=== PATIENT | male | born 1945 | race Hispanic/Latino ===

== ENCOUNTER 2017-02-15 00:35 | Emergency (ER) | payer MEDICARE ==
[2017-02-15 01:37] LABS: Bilirubin,Urine NEG (Negative); Blood,Urine MOD (Negative); Ketones,Urine TR mg/dL (Negative); Leukocyte Esterase,Urine NEG (Negative); Nitrite,Urine NEG (Negative); Urobilinogen,Urine < 2.0 mg/dL (<2.0)
[2017-02-15 01:40] LABS: Eosinophils % (Auto) 8.7 % (0.0-4.3); Hematocrit 39.5 % (35.5-45.6); Hemoglobin 13.2 gm/dl (11.8-15.2); Mean Corpuscular HGB Conc 34 % (32-34); Mean Corpuscular Hemoglobin 30 pg (28-32); Mean Corpuscular Volume 91 fl (84-94); Platelet Count 244 K/mm3 (140-440); Red Blood Count 4.35 M/mm3 (3.65-5.03); Red Cell Distribution Width 14.5 % (13.2-15.2); White Blood Count 9.7 K/mm3 (4.5-11.0)
[2017-02-15 01:44] LABS: Mucus,Urine FEW /HPF
[2017-02-15 01:46] LABS: RBC,Urine > 182.0 /HPF (0.0-6.0)
[2017-02-15 01:50] LABS: INR 2.74 (0.87-1.13)
[2017-02-15 01:51] LABS: Partial Thromboplastin Time 42.2 Sec. (24.2-36.6)
[2017-02-15 02:02] LABS: Alanine Aminotransferase 25 units/L (7-56); Albumin 4.1 g/dL (3.9-5); Albumin/Globulin Ratio 1.2 %; Alkaline Phosphatase 50 units/L (35-129); BUN/Creatinine Ratio 17.14; Blood Urea Nitrogen 12 mg/dL (9-20); Calcium 8.6 mg/dL (8.4-10.2); Carbon Dioxide 22 mmol/L (22-30); Glucose 121 mg/dL (75-100); Total Protein 7.4 g/dL (6.3-8.2)
[2017-02-15 02:03] LABS: Anion Gap 19 mmol/L; Chloride 100.8 mmol/L (98-107); Sodium 138 mmol/L (137-145)
--- NOTE | 2017-02-15 02:33 | Emergency Department Report ---
HPI - General Chief Complaint: Urogenital-Male Time Seen by Provider: 02/15/17 02:13 - HPI HPI: Room 1 The patient is a 71-year-old male presenting with a chief complaint of hematuria. The patient has a history of protein S deficiency and is on warfarin. The patient states she has had a history of intermittent hematuria for 20 years and this been attributed mostly to him being on Coumadin. The patient states 5 years ago he was told he had a "ruptured bladder wall" although there was no history of trauma. The patient states last night he again developed hematuria. He states this morning after using the riding lawnmower he noticed his urine was a dark red in color. Patient admits to slight discomfort with urinating. Patient denies nausea vomiting, fever or shortness of breath. Location: Genitourinary system Duration: 2 days Quality: Discomfort Severity: Mild Modifying factors: [see above] Context: [see above] Mode of transportation: [not driving] ED Past Medical Hx - Past Medical History Previous Medical History?: Yes Additional medical history: Mitral valve repair 2012. Protien S Def, takes Warfrin. Atrial fibrillation - Surgical History Past Surgical History?: Yes Additional Surgical History: Mitral Valve. Bladder - Family History Family history: no significant - Social History Smoking Status: Former Smoker (none 20 years) Substance Use Type: None - Medications Home Medications: Home Medications Medication Instructions Recorded Confirmed Last Taken Type Sulfamethoxazole/Trimethoprim 1 each PO BID #14 tablet 02/15/17 Unknown Rx [Bactrim DS TAB] ED Review of Systems ROS: Stated complaint: BLOOD IN UIRINE, COLD SWEATS Other details as noted in HPI Comment: All other systems reviewed and negative Constitutional: denies: chills, fever Eyes: denies: eye pain, eye discharge, vision change ENT: denies: ear pain, throat pain Respiratory: denies: cough, shortness of breath, wheezing Cardiovascular: denies: chest pain, palpitations Endocrine: no symptoms reported Gastrointestinal: denies: abdominal pain, nausea, diarrhea Genitourinary: dysuria, hematuria Musculoskeletal: denies: back pain, joint swelling, arthralgia Skin: denies: rash, lesions Neurological: denies: headache, weakness, paresthesias Psychiatric: denies: anxiety, depression Hematological/Lymphatic: denies: easy bleeding, easy bruising Physical Exam - Physical Exam Vital Signs: Vital Signs 02/15/17 02/15/17 00:52 01:42 Temperature 97.6 F Pulse Rate 99 H 108 H Respiratory 20 20 Rate Blood Pressure 133/80 [Right] O2 Sat by Pulse 99 Oximetry Physical Exam: GENERAL: The patient is well-developed well-nourished male lying on stretcher not appearing to be in acute distress. [] HEENT: Normocephalic. Atraumatic. Extraocular motions are intact. Patient has moist mucous membranes. NECK: Supple. Trachea midline CHEST/LUNGS: Clear to auscultation. There is no respiratory distress noted. HEART/CARDIOVASCULAR: Irregularly irregular. There is no tachycardia. There is no gallop rub or murmur. ABDOMEN: Abdomen is soft, nontender. Patient has normal bowel sounds. There is no abdominal distention. SKIN: There is no rash. There is no edema. There is no diaphoresis. NEURO: The patient is awake, alert, and oriented. The patient is cooperative. The patient has normal speech MUSCULOSKELETAL: There is no evidence of acute injury. ED Course Vital Signs 02/15/17 02/15/17 00:52 01:42 Temperature 97.6 F Pulse Rate 99 H 108 H Respiratory 20 20 Rate Blood Pressure 133/80 [Right] O2 Sat by Pulse 99 Oximetry ED Medical Decision Making - Lab Data Result diagrams: 02/15/17 01:21 02/15/17 01:21 Laboratory Tests 02/15/17 02/15/17 02/15/17 01:00 01:21 01:21 WBC 9.7 RBC 4.35 Hgb 13.2 Hct 39.5 MCV 91 MCH 30 MCHC 34 RDW 14.5 Plt Count 244 Lymph % (Auto) 26.4 [place] % (Auto) 7.9 H Eos % (Auto) 8.7 H Baso % (Auto) 1.0 Lymph # 2.5 [place] # 0.8 Eos # 0.8 H Baso # 0.1 Seg Neutrophils % 56.0 Seg Neutrophils # 5.4 PT 30.5 H INR 2.74 H APTT 42.2 H Carbon Dioxide BUN Creatinine Estimated GFR BUN/Creatinine Ratio Glucose Calcium Total Bilirubin AST ALT Alkaline Phosphatase Total Protein Albumin Albumin/Globulin Ratio Urine Color Brown Urine Turbidity Cloudy Urine pH 5.0 Ur Specific Soso 1.025 Urine Protein 100 mg/dl Urine Glucose (UA) 150 Urine Ketones Tr Urine Blood Mod Urine Nitrite Neg Urine Bilirubin Neg Urine Urobilinogen < 2.0 Ur Leukocyte Esterase Neg Urine WBC (Auto) 14.0 H Urine RBC (Auto) > 182.0 Urine Mucus Few Urine Yeast (Budding) 2+ 02/15/17 01:21 WBC RBC Hgb Hct MCV MCH MCHC RDW Plt Count Lymph % (Auto) [place] % (Auto) Eos % (Auto) Baso % (Auto) Lymph # [place] # Eos # Baso # Seg Neutrophils % Seg Neutrophils # PT INR APTT Carbon Dioxide 22 BUN 12 Creatinine 0.7 L Estimated GFR > 60 BUN/Creatinine Ratio 17.14 Glucose 121 H Calcium 8.6 Total Bilirubin 0.30 AST 25 ALT 25 Alkaline Phosphatase 50 Total Protein 7.4 Albumin 4.1 Albumin/Globulin Ratio 1.2 Urine Color Urine Turbidity Urine pH Ur Specific Soso Urine Protein Urine Glucose (UA) Urine Ketones Urine Blood Urine Nitrite Urine Bilirubin Urine Urobilinogen Ur Leukocyte Esterase Urine WBC (Auto) Urine RBC (Auto) Urine Mucus Urine Yeast (Budding) Sodium 138, potassium 4.0, chloride 100.8 - EKG Data -: EKG Interpreted by Ut Rate: normal - EKG Data When compared to previous EKG there are: previous EKG unavailable Interpretation: other (EKG reveals atrial fibrillation at a rate of 90 bpm. No ischemic changes seen) - Radiology Data Radiology results: report reviewed (CT abdomen and pelvis), image reviewed (CT abdomen and pelvis) CT abdomen and pelvis (read by radiologist) (-there is no evidence of intestinal or urinary tract prescription. No ileus or enteritis. The appendix is normal. Moderate diverticulosis of the distal colon. There is thickening of the urinary bladder wall. There is a moderate size diverticulum of the posterior right urinary bladder. This measures 4 cm. COPD with mild fibrosis. - Differential Diagnosis renal colic, UTI, bladder mass, A. fib Critical care attestation.: If time is entered above; I have spent that time in minutes in the direct care of this critically ill patient, excluding procedure time. ED Disposition Clinical Impression: Hematuria, UTI (urinary tract infection), Atrial fibrillation, Bladder diverticulum Disposition: TO HOME OR SELFCARE Is pt being admited?: No Does the pt Need Aspirin: No Condition: Stable Instructions: Urinary Tract Infection in Men (ED), Acute Hematuria (ED) Additional Instructions: Return to the emergency department immediately should you develop worsening symptoms, fever, inability to tolerate food or liquid or any other concerns. Prescriptions: Sulfamethoxazole/Trimethoprim [Bactrim DS TAB] 1 each PO BID #14 tablet Referrals: PRIMARY CARE, [Primary Care Provider] - 3-5 Days your urologist, [facility] [Other] - [facility] Time of Disposition: 03:59
--- NOTE | 2017-02-15 03:05 | Cat Scan Report ---
FINAL REPORT PROCEDURE: CT ABDOMEN PELVIS WO CON TECHNIQUE: Computerized axial tomography of the abdomen and pelvis was performed without intravenous contrast. This study is performed without intravascular contrast material and its sensitivity for abdominal and pelvic pathology, including neoplasms, inflammation, abscess, free fluid, thrombosis, arterial dissection and infarction, is reduced compared with a contrast enhanced study. HISTORY: hematuria COMPARISON: No prior studies are available for comparison. FINDINGS: Visualized lower thorax: Mild COPD with fibrosis.. Liver: Normal size and attenuation. Spleen: Normal size and attenuation. Gallbladder and biliary system: Normal. Pancreas: Normal. Adrenals: Normal. Kidneys: Both kidneys have a normal size. No hydronephrosis. No renal stones or.. GI tract: Stomach is. A small hiatal hernia is identified. Has caliber without obstruction. No ileus or enteritis. The appendix and colon are normal. Moderate diverticular changes in the distal colon. No inflammatory process.. Lymph nodes and mesentery: Normal. Vasculature: Normal. Bladder: There is a moderate-sized diverticulum of the posterior right side urinary bladder. There thickening of the urinary bladder wall.. Reproductive organs: Normal. Peritoneum: No free fluid. Musculoskeletal structures: Mild degenerative changes of thoracic lumbar spine.. Other: None. IMPRESSION: There is no evidence of intestinal or urinary tract obstruction. No ileus or enteritis. The appendix is normal. Moderate diverticulosis of the distal colon. There thickening of the urinary bladder wall. There is a moderate-sized diverticulum off the posterior right urinary bladder. This measures 4 centimeters. COPD with mild fibrosis..
[2017-02-15 03:08] VITALS: BP 111/77
== END 2017-02-15 04:25 | disposition home or self-care (01) ==
LOC: ED 00:35
DX: R31.9 Hematuria, unspecified (principal); N39.0 Urinary tract infection, site not specified; I48.91 Unspecified atrial fibrillation; N32.3 Diverticulum of bladder; Z87.891 Personal history of nicotine dependence
CPT/HCPCS: 36415; 74176; 80053; 81001; 85025; 85610; 85730; 93005; 93010